=== PATIENT | female | born 1975 ===

== ENCOUNTER 2017-01-16 09:34 | Emergency (ER) | payer OTHER ==
--- NOTE | 2017-01-16 12:06 | UC ---
UC General HPI - HPI Summary HPI Summary: FOR SEVERAL YEARS HAS HAD ACHINESS IN JOINTS, IN FINGERS AND IN KNEES. WORSE WITH REPETITIVE MOVEMENT. WAS PRESCRIBED CREME IN REPLACED BY [facility] LAST YEAR, BUT DOES NOT REMEMBER NAME. ALSO HAS TRIED HERBAL TREATMENTS BUT DOES NOT KNOW WHICH ONES. HAD BLOODWORK DONE IN PAST AND WILL MAKE FUTURE APPOINTMENT WITH DR. STERLING. NO TRAUMA. - History of Current Complaint Chief Complaint: UCGeneralIllness Stated Complaint: PAINFUL JOINTS Time Seen by Provider: 01/16/17 10:45 Hx Obtained From: Patient Onset/Duration: Gradual Onset, Lasting Weeks, Still Present Timing: Intermittent Episodes Lasting: Onset Severity: Mild Current Severity: Mild Pain Intensity: 5 Associated Signs & Symptoms: Positive: Other - JOINT PAIN IN FINGERS KNEES - Allergy/Home Medications Allergies/Adverse Reactions: Allergies Allergy/AdvReac Type Severity Reaction Status Date / Time No Known Allergies Allergy Verified 01/16/17 10:15 PMH/Surg Hx/FS Hx/Imm Hx Previously Healthy: Yes Endocrine History Of: Denies: Diabetes, Thyroid Disease, Hyperthyroidism, Hypothyroidism, Dyslipidemia Cardiovascular History Of: Denies: Cardiac Disorders, Hypertension, Pacemaker/ICD, Myocardial Infarction , Congestive Heart Failure, Atrial Fibrillation, Deep Vein Thrombosis, Bleeding Disorders Respiratory History Of: Denies: COPD, Asthma, Bronchitis, Pneumonia, Pulmonary Embolism GI/ History Of: Denies: Gastroesophageal Reflux, Ulcer, Gastrointestinal Bleed, Gall Bladder Disease, Kidney Stones, Diverticulitis, Renal Disease, Urosepsis Neurological History Of: Denies: TIA, CVA, Dementia, Seizures, Migraine Psychological History Of: Denies: Anxiety, Depression, Bipolar Disorder, Schizophrenia, Post Traumatic Stress Disorder Cancer History Of: Denies: Lung Cancer, Colorectal Cancer, Breast Cancer, Prostate Cancer, Cervical Cancer Other History Of: Negative For: HIV, Hepatitis B, Hepatitis C - Surgical History Surgical History: None - Family History Known Family History: Positive: None - Social History Occupation: Employed Full-time Lives: With Family Alcohol Use: Occasionally Substance Use Type: None Smoking Status (MU): Never Smoked Tobacco Review of Systems Constitutional: Negative Skin: Negative Eyes: Negative ENT: Negative Respiratory: Negative Cardiovascular: Negative Gastrointestinal: Negative Genitourinary: Negative Motor: Negative Musculoskeletal: Arthralgia, Myalgia Neurological: Negative Psychological: Negative All Other Systems Reviewed And Are Negative: Yes Physical Exam Triage Information Reviewed: Yes Appearance: Well-Appearing, No Pain Distress, Well-Nourished Vital Signs: Initial Vital Signs Temp 98.1 F 01/16/17 10:18 Pulse 79 01/16/17 10:18 Resp 18 01/16/17 10:18 BP 105/66 01/16/17 10:18 Pulse Ox 99 01/16/17 10:18 Vital Signs Reviewed: Yes Eye Exam: Normal ENT Exam: Normal ENT: Positive: Normal ENT inspection, Hearing grossly normal, Pharynx normal, TMs normal Dental Exam: Normal Neck exam: Normal Neck: Positive: Supple, Nontender Respiratory Exam: Normal Respiratory: Positive: Chest non-tender, Lungs clear, Normal breath sounds, No respiratory distress, No accessory muscle use Cardiovascular Exam: Normal Cardiovascular: Positive: RRR, No Murmur, Pulses Normal Abdominal Exam: Normal Musculoskeletal Exam: Normal Musculoskeletal: Positive: Strength Intact, ROM Intact, No Edema Neurological Exam: Normal Psychological Exam: Normal Psychological: Positive: Normal Response To Family Skin Exam: Normal Course/Dx - Differential Dx - Multi-Symptom Differential Diagnoses: Metabolic Abnormality, Other Provider Diagnoses: ARTHRITIS (HANDS, KNEES) Discharge - Discharge Plan Condition: Stable Disposition: HOME Prescriptions: Capsaicin [Capsaicin Hp] 0.1 % EX BID #1 tube Naproxen [Naproxen 500 MG TABS] 500 mg PO BID #10 tab Patient Education Materials: Arthritis (ED) Forms: *Work Release Referrals: Harlan Sterling MD [Primary Care Provider] -
== END 2017-01-16 11:37 | disposition home or self-care (01) ==
LOC: UCEAST 09:34
DX: M17.0 Bilateral primary osteoarthritis of knee (principal); M19.042 Primary osteoarthritis, left hand; M19.041 Primary osteoarthritis, right hand
CPT/HCPCS: 99212; G0463